=== PATIENT | female | born 2000 | race Two or more races ===

== ENCOUNTER 2023-03-15 21:51 | Emergency (ER) | payer OTHER ==
[~2023-03-15] VITALS: Ht 162.6 cm; Wt 56.7 kg
[2023-03-15] MEDS ORDERED: SYNTHROID175 MCG PO (22:22)
[2023-03-15] MEDS ORDERED: JUNEL FE 1.5 M1 EACH PO (22:23)
[2023-03-15] MEDS ORDERED: SPIRONOLACTONE100 MG PO (22:23)
== END 2023-03-16 02:48 | disposition left against medical advice (07) ==
LOC: EMR PED 21:51 → ER 21:58 → EMR PED 21:58 → ER 03-16 02:48
DX: Z53.21 Procedure and treatment not carried out due to patient leaving prior to being seen by health care provider (principal)